=== PATIENT | female | born 1995 ===

== ENCOUNTER → 2025-02-10 | Outpatient (CLI) | payer OTHER ==
[2025-02-10 14:11] LABS: Candida glabrata-krusei, PCR NOT DETECTED (NOT DETECT)
[2025-02-11 11:00] LABS: Bacterial Vaginosis PCR Positive (NEGATIVE)
[2025-02-11 11:03] LABS: Candida Group, PCR DETECTED (NOT DETECT)
== END ==
LOC: LAB 11:50 → LAB SHORT 11:50
PROVIDERS: Family Medicine
DX: Z34.03 Encounter for supervision of normal first pregnancy, third trimester (principal)
CPT/HCPCS: 81515